=== PATIENT | female | born 1990 | race Two or more races ===

== ENCOUNTER 2023-08-09 07:54 | Outpatient (CLI) | payer BC | END 2023-08-09 08:06 | disposition home or self-care (01) | LOC: TOM 07:54 | PROVIDERS: ATTEND Obstetrics & Gynecology | DX: N80.9 Endometriosis, unspecified (principal); N80.03 Adenomyosis of the uterus; N80.00 Endometriosis of the uterus, unspecified | CPT/HCPCS: 72191 ==